=== PATIENT | female | born 1985 | race Caucasian/White ===

== ENCOUNTER 2016-08-01 00:36 | Inpatient (IN) | payer OTHER ==
[2016-08-01 00:58] VITALS: BMI 30.2
[2016-08-01] MEDS ORDERED: OXYTOCIN 10 UNITS/ML VIAL ONE (01:19)
[2016-08-01] MEDS ORDERED: MINERAL OIL 25 ML BOT ONE (01:19)
[2016-08-01] MEDS ORDERED: LIDOCAINE 1% (PRES FREE) 30 ML VIAL ONE (01:19)
[2016-08-01] MEDS ORDERED: LIDOCAINE Viscous 2% 15 ML UDCUP ONE (01:19)
[2016-08-01] MEDS ORDERED: PUMP TUBING ONE (01:19)
[2016-08-01] MEDS ORDERED: LACTATED RINGERS 1,000 ML ONE (01:20)
[2016-08-01] MEDS ORDERED: IV START KIT ONE (01:20)
[2016-08-01] MEDS ORDERED: OXYTOCIN IN LR 500 ML IV ONE ×2 (01:20→01:25)
[2016-08-01] MEDS ORDERED: LACTATED RINGERS 1,000 ML IV PRN (01:25)
[2016-08-01] MEDS ORDERED: LACTATED RINGERS 1,000 ML IV SCH (01:30)
[2016-08-01 02:06] LABS: HEMATOCRIT 39.6 % (37.0-47.0); HEMOGLOBIN 13.4 gm/l (12.0-16.0); MEAN CELL VOLUME 96.4 fl (81.0-99.0); MEAN CORPUSCULAR HEMOGLOBIN 32.6 pg (27.0-31.0); MEAN CORPUSCULAR HGB CONC 33.8 g/dl (33.0-37.0); RED CELL DISTRIBUTION WIDTH 13.8 % (11.5-14.5)
[2016-08-01] MEDS ORDERED: FENTANYL/ROPIVACAINE EPIDURAL 250 ML EP ONE (02:33)
[2016-08-01] MEDS ORDERED: EPIDURAL PUMP SET ONE (02:33)
[2016-08-01] MEDS ORDERED: LACTATED RINGERS 500 ML IV PRN (03:15)
[2016-08-01] MEDS ORDERED: FENTANYL/ROPIVACAINE EPIDURAL 250 ML EP SCH (03:15)
[2016-08-01] MEDS ORDERED: NALBUPHINE HCL 20 MG/ML AMP IV PRN (03:15)
[2016-08-01] MEDS ORDERED: SODIUM CHLORIDE 0.9% 500 ML IV PRN (03:15)
[2016-08-01] MEDS ORDERED: EPHEDRINE SULFATE 50 MG/ML 1ML VIAL IV PRN (03:15)
[2016-08-01] MEDS ORDERED: DIPHENHYDRAMINE HCL 50 MG/1 ML VIAL IV PRN (03:15)
[2016-08-01] MEDS ORDERED: METOCLOPRAMIDE HCL 5 MG/ML 2ML VIAL IV PRN (03:15)
[2016-08-01] MEDS ORDERED: NALOXONE HCL 0.4 MG/ML VIAL IV PRN (03:15)
[2016-08-01] MEDS ORDERED: ONDANSETRON 4 MG/2ML 2 ML VIAL IV PRN (03:15)
[2016-08-01] MEDS ORDERED: ROPIVACAINE 0.5% 30 ML VIAL ONE (03:19)
[2016-08-01] MEDS ORDERED: EPIDURAL PROCEDURE TRAY ONE (03:19)
[2016-08-01] MEDS ORDERED: MINERAL OIL 25 ML BOT TP ONE (06:56)
--- NOTE | 2016-08-01 08:11 | PCMAN ---
OB Admission Note - History : 4 Term: 3 : 0 Abortions (S&E): 0 Livin Gestational Age (weeks): 39 Days (#/7): 6 Admit Cervical Dilation:: 5 Admit Cervical Effacement (%):: 80 Admit Station:: -2 Admit Presentaton:: Vertex Membrane Status: Intact Labor Onset (Date): 07/31/16 Labor Onset (Time): 23:00 Contractions: Yes Contraction Frequency:: 4.5-6 Summary of Course:: Uneventful course except for hypothyroidism managed with q4 week labs. - Labs Blood Type: A (+) positive Hct/Hgb:: 13.4 Rubella Status: Immune GBS Status: Negative Abnormal Labs: None - Review of Systems Pt presented with contractions increasing in strength and frequency. no VB, LOF, LOFM - Problems (1) Active labor at term Status: Acute Code: [id number]/Plan: Expectant management I came to the hospital at this point to be present for imminent delivery Pt received an epidural (2) Hypothyroidism affecting in third trimester Status: Acute Code: O99.283
[2016-08-01] MEDS ORDERED: MAGNESIUM HYDROXIDE 30 ML UDCUP PO PRN (08:13)
[2016-08-01] MEDS ORDERED: BENZOCAINE/MENTHOL 60 APPLIC/BOT TP PRN (08:13)
[2016-08-01] MEDS ORDERED: CALCIUM CARBONATE 500 MG TAB.CHEW PO PRN (08:13)
[2016-08-01] MEDS ORDERED: HYDROCODONE/ACETAMINOPHEN 5/325MG TABLET PO PRN (08:13)
[2016-08-01] MEDS ORDERED: LANOLIN 50 APPLIC/7G TUBE TP PRN (08:13)
--- NOTE | 2016-08-01 09:53 | PCMDEL ---
Delivery Note - Labor 1st stage (hr/min):: 04:50 2nd stage (hr/min):: 00:20 3rd stage (hr/min):: 00:05 Total (hr/min):: 05:15 Pushed (hr/min):: 20 min. - Delivery Delivery (Date): 08/01/16 Delivery (Time): 06:44 Gender: Female Length: 1 ft 8 in Position: OA Umbilical Cord: 3 Vessel Delayed Cord Clamping:: < 1-2 min 1 Minute Total: 9 5 Minute Total: 9 Placenta:: delivered intact EBL:: 250 Perineum:: 2nd degree laceration repaired in the usual fashion Suture:: 3-0 vicryl on an SH Anesthesia/Meds:: epidural Length ROM:: 20 min. Comments:: Pt delivered after 20min. of effective pushing. SROM 20min. before delivery
[2016-08-01] MEDS ORDERED: SODIUM CHLORIDE 0.9% FLUSH 10 ML ONE (09:54)
[2016-08-01] MEDS: DOCUSATE SODIUM 100 MG CAPSULE PO SCH (09:56)
[2016-08-01] MEDS ORDERED: LEVOTHYROXINE SODIUM 88 MCG TABLET PO ONE (10:24)
[2016-08-01] MEDS: IBUPROFEN 800 MG TABLET PO SCH ×3 (15:23→21:05)
[2016-08-01] MEDS: LACTATED RINGERS 1,000 ML IV SCH ×2 (15:28→15:29)
[2016-08-02] MEDS: IBUPROFEN 800 MG TABLET PO SCH ×2 (04:05→10:03)
[2016-08-02 08:44] VITALS: BP 117/68
[2016-08-02] MEDS: DOCUSATE SODIUM 100 MG CAPSULE PO SCH (10:03)
--- NOTE | 2016-08-02 12:07 | PDOC39B ---
Hospital Course: ADMIT DATE: 08/01/16 DISCHARGE DATE: 08/02/16 ADMISSION DIAGNOSES: Active labor PROCEDURES: , epidural HISTORY OF PRESENT ILLNESS: 31 year old G4 T3 L3 at 39 weeks 6 days presenting with active labor HOSPITAL COURSE: The patient was admitted for expectant management after presenting in active labor. She delivered uncomplicated, female term . Routine care was provided. By day of discharge the patient is ambulating, eating, voiding, and passing flatus without difficulty. Pain is controlled and lochia is appropriate. She is [] - Physical Exam Vital Signs: Temp Pulse Resp BP Pulse Ox 98.0 F 67 14 117/68 08/02/16 08:15 08/02/16 08:15 08/02/16 08:15 08/02/16 08:15 - Discharge Diagnosis (1) Active labor at term Status: AcuteAssessment/Plan: Expectant management I came to the hospital at this point to be present for imminent delivery Pt received an epidural (2) Hypothyroidism affecting in third trimester Status: Acute
== END 2016-08-02 14:15 | disposition home or self-care (01) | DRG 775 ==
LOC: FBC 00:36 → FBCOUT 00:36 → FBC 01:20
PROVIDERS: ADMIT Family Medicine; ATTEND Family Medicine
PROC: 10E0XZZ Delivery of Products of Conception, External Approach (ICD-10-PCS; principal; 2016-08-01)
PROC: 0KQM0ZZ Repair Perineum Muscle, Open Approach (ICD-10-PCS; 2016-08-01)
DX: O70.1 Second degree perineal laceration during delivery (principal); Z37.0 Single live birth; O99.284 Endocrine, nutritional and metabolic diseases complicating childbirth; E03.9 Hypothyroidism, unspecified; Z3A.39 39 weeks gestation of pregnancy; O09.43 Supervision of pregnancy with grand multiparity, third trimester